=== PATIENT | female | born 1960 | race Caucasian/White ===

== ENCOUNTER 2017-02-06 14:44 | Emergency (ER) | payer MEDICAID ==
[~2017-02-06] VITALS: Ht 167.6 cm; Wt 72.6 kg
[2017-02-06 14:52] VITALS: BP 138/99
[2017-02-06] MEDS ORDERED: ACETAMINOPHEN ES 500 MG TABLET ONE (15:19)
[2017-02-06] MEDS ORDERED: GELATIN SPONGE,ABSORBABLE 1 SPONGE SPONGE TP ONE (15:25)
[2017-02-06] MEDS: ACETAMINOPHEN ES 500 MG TABLET PO ONE (15:25)
[2017-02-06] MEDS ORDERED: OLANZAPINE 10 MG VIAL IM ONE (15:32)
[2017-02-06] MEDS ORDERED: WATER FOR INJECTION,STERILE 10 ML ONE (15:32)
== END 2017-02-06 15:50 | disposition home or self-care (01) ==
LOC: ER 14:46
DX: S61.213A Laceration without foreign body of left middle finger without damage to nail, initial encounter (principal); E03.9 Hypothyroidism, unspecified; M19.90 Unspecified osteoarthritis, unspecified site; W26.0XXA Contact with knife, initial encounter; Y93.G3 Activity, cooking and baking; Y92.89 Other specified places as the place of occurrence of the external cause; Y99.9 Unspecified external cause status
CPT/HCPCS: 99283; A4606; A6402; Z7610; J3490

== ENCOUNTER 2021-07-18 13:50 | Emergency (ER) | payer MEDICAID ==
[~2021-07-18] VITALS: Ht 165.1 cm; Wt 111.1 kg
--- NOTE | 2021-07-18 14:03 | NUR ---
TO ER BED 6, BIB DAUGHTER C/O CHEST PAIN, GENERALIZED WEAKNESS AND LOSS OF APPETITE X 4 DAYS, AAOX3, BREATHING EVEN AND NON LABORED, CONNECTED TO MONITOR
--- NOTE | 2021-07-18 14:09 | NUR ---
DR DIEHL AT BEDSIDE
--- NOTE | 2021-07-18 14:15 | NUR ---
RAC #20G S/L; BLOOD WORK COLLECTED AND GIVEN TO [facility]
[2021-07-18] MEDS ORDERED: ONDANSETRON HCL/PF 4 MG/2 ML VIAL ONE (14:17)
--- NOTE | 2021-07-18 14:27 | NUR ---
URINE COLLECTED AND SENT TO LAB
[2021-07-18] MEDS ORDERED: ONDANSETRON HCL/PF 4 MG/2 ML VIAL IVP ONE (14:30)
[2021-07-18] MEDS ORDERED: IV NS 0.9% 1,000 ML BAG IV ONE (14:30)
--- NOTE | 2021-07-18 14:40 | NUR ---
[employer]ORER AT BEDSIDE
[2021-07-18 15:13] LABS: BASOPHILS % (AUTO) 0.2 % (0.0-2.0); EOSINOPHILS % (AUTO) 1.4 % (0.0-6.0); HEMATOCRIT 43 % (33-45); LYMPHOCYTES # (AUTO) 1.8 K/uL (0.8-4.8); LYMPHOCYTES % (AUTO) 18.8 % (20.0-44.0); MEAN CORPUSCULAR HGB CONC 33 g/dl (31.0-36.0); MEAN CORPUSCULAR VOLUME 94 fL (82-100); MONOCYTES # (AUTO) 0.6 K/uL (0.1-1.30); MONOCYTES % (AUTO) 6.6 % (2.0-12.0); NEUTROPHILS # (AUTO) 6.8 K/uL (1.8-8.9); PLATELET COUNT (AUTO) 260 K/uL (150-450); RED BLOOD CELL COUNT(AUTO) 4.52 MIL/uL (4.0-5.2); WHITE BLOOD COUNT (AUTO) 9.4 K/uL (4.3-11.0)
[2021-07-18 15:29] LABS: CALCIUM, SERUM 8.6 mg/dL (8.5-10.1); CARBON DIOXIDE 28 mmol/L (21-32); CHLORIDE 103 mmol/L (98-107); CREATININE 0.7 mg/dL (0.6-1.3); GLUCOSE 164 mg/dL (74-106); POTASSIUM 4.1 mmol/L (3.5-5.1); SODIUM SERUM 138 mmol/L (136-145); UREA NITROGEN, BLOOD 7 mg/dL (7-18)
[2021-07-18 15:31] LABS: BILIRUBIN,URINE NEGATIVE (NEGATIVE); COLOR,URINE YELLOW (YELLOW); LEUKOCYTE ESTERASE ,URINE NEGATIVE (NEGATIVE); NITRITE, URINE NEGATIVE (NEGATIVE); PH,URINE 6.5 (5.0-8.0); PROTEIN,URINE NEGATIVE (NEGATIVE); UGLUCOSE NEGATIVE (NEGATIVE); UROBILINOGEN,URINE 0.2 EU/dL (0.2)
[2021-07-18 15:35] LABS: ALANINE AMINOTRANSFERASE 137 U/L (12-78); ALKALINE PHOSPHATASE 63 U/L (46-116); ASPARTATE AMINOTRANSFERASE 44 U/L (15-37); BILIRUBIN,DIRECT 0.1 mg/dL (0.0-0.2); BILIRUBIN,TOTAL 0.3 mg/dL (0.2-1.0); LIPASE 59 U/L (73-393)
[2021-07-18 15:52] LABS: THYROID STIMULATING HORMONE 1.878 uIU/mL (0.358-3.74)
[2021-07-18 15:56] LABS: BACTERIA,URINE None seen /HPF (None Seen); SQUAMOUS EPITHELIAL CELL,UR 0-2 /HPF (None Seen); WBC,URINE 0-2 /HPF (0-3)
[2021-07-18] MEDS ORDERED: METOCLOPRAMIDE HCL 10 MG/2 ML VIAL IV ONE (16:00)
[2021-07-18] MEDS ORDERED: SUMATRIPTAN SUCCINATE 6 MG/0.5 ML VIAL SQ ONE ×2 (16:00→16:09)
[2021-07-18] MEDS ORDERED: KETOROLAC TROMETHAMINE INJ 30 MG/ML VIAL IV ONE (16:00)
[2021-07-18] MEDS ORDERED: KETOROLAC TROMETHAMINE INJ 30 MG/ML VIAL ONE (16:09)
[2021-07-18] MEDS ORDERED: METOCLOPRAMIDE HCL 10 MG/2 ML VIAL ONE (16:10)
[2021-07-18] MEDS ORDERED: SUMA100T16 PO (17:11)
[2021-07-18] MEDS ORDERED: IBUP-1957 PO (17:11)
[2021-07-18] MEDS ORDERED: BENZ-13 PO (17:11)
[2021-07-18] MEDS ORDERED: GUAI1TBM19 PO (17:11)
[2021-07-18 17:43] VITALS: BP 132/61
--- NOTE | 2021-07-18 17:43 | NUR ---
IV removed. Catheter intact and site benign. Pressure and 4x4 applied to site. No bleeding noted.Patient discharged to home in stable condition. Written and verbal after care instructions given. Patient verbalizes understanding of instruction.
== END 2021-07-18 17:43 | disposition home or self-care (01) ==
LOC: ER 14:39
DX: B34.9 Viral infection, unspecified (principal); G43.909 Migraine, unspecified, not intractable, without status migrainosus; E03.9 Hypothyroidism, unspecified; Z79.899 Other long term (current) drug therapy
CPT/HCPCS: 36415; 70450; 71045; 80048; 80076; 81001; 83690; 84439; 84443; 84484; 85025; 93005; 96361; 96372; 96374; 96375; 99285; J1885; J2405; J2765; J3030; J7030